=== PATIENT | female | born 1965 | race Caucasian/White ===

== ENCOUNTER 2019-06-01 19:31 | Inpatient (IN) | payer OTHER ==
[~2019-06-01] VITALS: Ht 157.5 cm; Wt 88.5 kg
[~2019-06-01 19:31] MED LIST: CIPRO500 MG PO; CLONAZEPAM1 MG; GLIPIZIDE5 MG; LISINOPRIL5 MG; PROTONIX40 MG PO; SYNTHROID100 MCG; TOPAMAX25 MG; ULTRACET PO; VITA-C120 GM; ZOLOFT50 MG
[2019-06-01] MEDS ORDERED: SYNTHROID112 MCG (19:41)
[2019-06-01] MEDS ORDERED: ELIQUIS5 M1 (19:44)
== END 2019-06-08 19:10 | disposition home or self-care (01) | DRG 385 ==
LOC: ER 19:31 → MEDJ 06-02 09:42
PROVIDERS: ADMIT Internal Medicine
PROC: BW21Y0Z Computerized Tomography (CT Scan) of Abdomen and Pelvis using Other Contrast, Unenhanced and Enhanced (ICD-10-PCS; principal; 2019-06-02)
PROC: BW40ZZZ Ultrasonography of Abdomen (ICD-10-PCS; 2019-06-02)
PROC: 8E0ZXY6 Isolation (ICD-10-PCS; 2019-06-02)
DX: K51.00 Ulcerative (chronic) pancolitis without complications (principal); K85.80 Other acute pancreatitis without necrosis or infection; K57.32 Diverticulitis of large intestine without perforation or abscess without bleeding; A02.0 Salmonella enteritis; N28.1 Cyst of kidney, acquired; E03.8 Other specified hypothyroidism; E87.6 Hypokalemia; E11.9 Type 2 diabetes mellitus without complications; F41.1 Generalized anxiety disorder; Z79.4 Long term (current) use of insulin

== ENCOUNTER 2019-11-14 06:47 | Inpatient (IN) | payer OTHER ==
[~2019-11-14] VITALS: Ht 167.6 cm; Wt 90.0 kg
[~2019-11-14 06:47] MED LIST changes: +ELIQUIS5 M1; +SYNTHROID112 MCG
== END 2019-11-16 20:14 | disposition home or self-care (01) | DRG 103 ==
LOC: ER 06:47 → SEC-K 16:13 → SURH 17:02
PROVIDERS: ADMIT Internal Medicine; ATTEND Internal Medicine
PROC: B030ZZZ Magnetic Resonance Imaging (MRI) of Brain (ICD-10-PCS; principal; 2019-11-14)
PROC: B24BZZZ Ultrasonography of Heart with Aorta (ICD-10-PCS; 2019-11-14)
PROC: B345ZZZ Ultrasonography of Bilateral Common Carotid Arteries (ICD-10-PCS; 2019-11-14)
PROC: 4A12X4Z Monitoring of Cardiac Electrical Activity, External Approach (ICD-10-PCS; 2019-11-14)
DX: G44.40 Drug-induced headache, not elsewhere classified, not intractable (principal); F48.8 Other specified nonpsychotic mental disorders; R00.1 Bradycardia, unspecified; F41.8 Other specified anxiety disorders; I10 Essential (primary) hypertension; F13.10 Sedative, hypnotic or anxiolytic abuse, uncomplicated; E03.8 Other specified hypothyroidism; E78.5 Hyperlipidemia, unspecified; E11.9 Type 2 diabetes mellitus without complications; Z79.4 Long term (current) use of insulin
CPT/HCPCS: 70544

== ENCOUNTER 2020-05-06 09:15 | Day surgery (SDC) | payer OTHER | END 2020-05-06 13:35 | disposition home or self-care (01) | LOC: AMB-ENDOS 09:15 | PROVIDERS: ATTEND Surgery | DX: K57.32 Diverticulitis of large intestine without perforation or abscess without bleeding (principal); Z20.828 Contact with and (suspected) exposure to other viral communicable diseases ==